=== PATIENT | female | born 1960 | race Caucasian/White ===

== ENCOUNTER → 2016-10-12 | Outpatient (CLI) | payer BC | LOC: MC.RAD 13:38 | DX: Z12.31 Encounter for screening mammogram for malignant neoplasm of breast (principal) ==

== ENCOUNTER → 2017-11-23 | Outpatient (CLI) | payer BC | LOC: MC.RAD 11-14 10:40 | DX: Z12.31 Encounter for screening mammogram for malignant neoplasm of breast (principal) ==

== ENCOUNTER → 2018-12-13 | Outpatient (CLI) | payer BC | LOC: MC.RAD 11:16 | DX: Z12.31 Encounter for screening mammogram for malignant neoplasm of breast (principal) ==

== ENCOUNTER → 2020-02-28 | Outpatient (CLI) | payer BC | LOC: MC.RAD 15:23 | DX: Z12.31 Encounter for screening mammogram for malignant neoplasm of breast (principal) ==

== ENCOUNTER → 2021-05-06 | Outpatient (CLI) | payer BC | LOC: MC.RAD 10:36 | DX: Z12.31 Encounter for screening mammogram for malignant neoplasm of breast (principal) ==